=== PATIENT | female | born 1990 | race African-American/Black ===

== ENCOUNTER 2017-01-29 00:07 | Emergency (ER) | payer MEDICAID ==
[~2017-01-29] VITALS: Ht 167.6 cm; Wt 68.0 kg
[~2017-01-29 00:07] MED LIST: PREN1TAB49 PO; ZOLOFT
[2017-01-29 00:09] VITALS: BP 118/72
== END 2017-01-29 03:08 | disposition left against medical advice (07) ==
LOC: ER 00:07
DX: Z53.21 Procedure and treatment not carried out due to patient leaving prior to being seen by health care provider (principal)

== ENCOUNTER 2018-09-05 08:46 | Emergency (ER) | payer MEDICAID ==
[~2018-09-05] VITALS: Ht 160 cm; Wt 73.0 kg
[2018-09-05] MEDS ORDERED: NAPR-677 PO (08:51)
[2018-09-05] MEDS ORDERED: KETOROLAC 30MG/ML VIAL IV STA (09:12)
[2018-09-05] MEDS ORDERED: MORPHINE SULFATE 4 MG/ML CPJ (NOT FOR IM USE) IV STA (09:12)
[2018-09-05] MEDS ORDERED: ONDANSETRON HCL 4MG/2ML INJ IV STA (09:12)
[2018-09-05] MEDS ORDERED: SODIUM CHLORIDE 0.9% 1,000 ML IV ONE (09:12)
[2018-09-05] MEDS ORDERED: FAMOTIDINE 20MG/2ML VIAL IV ONE (09:15)
[2018-09-05 09:36] LABS: BASOPHILS % 0.6 % (0.0-2.0); EOSINOPHILS % 1.6 % (0.0-5.0); HEMATOCRIT. 30.8 % (36.0-48.0); HEMOGLOBIN. 9.9 g/dL (12.0-16.0); LYMPHOCYTES % 30.5 % (20.0-50.0); MEAN CORPUSCULAR HEMOGLOBIN 26.5 pg (28.0-32.0); MEAN CORPUSCULAR VOLUME 82.8 fL (81.0-99.0); MONOCYTES % 7.7 % (2.0-8.0); NEUTROPHILS % 59.6 % (40.0-76.0); PLATELET 218 x1000/uL (130-400); RED BLOOD CELL COUNT 3.73 mill/uL (4.2-5.4); RED CELL DISTRIBUTION WIDTH 16.3 % (11.6-14.6)
[2018-09-05 09:43] LABS: CHLORIDE 113 mEq/L (98-107)
[2018-09-05 09:46] LABS: PARTIAL THROMBOPLASTIN TIME 28.4 sec (23.4-31.0)
[2018-09-05 09:48] LABS: CLARITY URINE TURBID (CLEAR); COLOR URINE YELLOW (YELLOW); KETONES URINE TRACE (NEGATIVE); LEUKOCYTE ESTERASE URINE NEGATIVE (NEGATIVE); NITRITE URINE NEGATIVE (NEGATIVE); OCCULT BLOOD URINE NEGATIVE (NEGATIVE); PH URINE 5.5 (4.5-8.0); PROTEIN URINE NEGATIVE (NEGATIVE); SPECIFIC GRAVITY URINE 1.035 (1.005-1.030); UROBILINOGEN URINE 0.2 E.U./dL (0.2-1.0)
[2018-09-05 09:58] LABS: HCG SCREEN NEGATIVE
[2018-09-05 10:08] VITALS: BP 107/61
[2018-09-05] MEDS ORDERED: KETOROLAC 30MG/ML VIAL IV ONE (11:00)
== END 2018-09-05 12:02 | disposition home or self-care (01) ==
LOC: ER 08:55
DX: N39.0 Urinary tract infection, site not specified (principal); N83.209 Unspecified ovarian cyst, unspecified side; F12.10 Cannabis abuse, uncomplicated; F31.9 Bipolar disorder, unspecified; Z98.890 Other specified postprocedural states; Z98.51 Tubal ligation status
CPT/HCPCS: 36415; 74176; 80053; 81003; 81025; 83690; 83880; 84484; 84703; 85025; 85610; 85730; 96374; 96375; 96376; 99284; J1885; J2270; J2405; J3490; J7030; Z7610

== ENCOUNTER 2018-10-08 18:26 | Emergency (ER) | payer MEDICAID ==
[~2018-10-08] VITALS: Ht 167.6 cm; Wt 70.0 kg
[~2018-10-08 18:26] MED LIST changes: +NAPR-677 PO
[2018-10-08] MEDS ORDERED: MORPHINE SULFATE 4 MG/ML CPJ (NOT FOR IM USE) IV ONE (19:00)
[2018-10-08 20:24] LABS: BASOPHILS % 0.9 % (0.0-2.0); EOSINOPHILS % 2.1 % (0.0-5.0); HEMATOCRIT. 33.7 % (36.0-48.0); HEMOGLOBIN. 10.7 g/dL (12.0-16.0); LYMPHOCYTES % 25.6 % (20.0-50.0); MEAN CORPUSCULAR HEMOGLOBIN 26.2 pg (28.0-32.0); MEAN CORPUSCULAR VOLUME 82.5 fL (81.0-99.0); MEAN PLATELET VOLUME 8.5 fl (7.4-10.4); MONOCYTES % 6.1 % (2.0-8.0); NEUTROPHILS % 65.3 % (40.0-76.0); PLATELET 219 x1000/uL (130-400); RED BLOOD CELL COUNT 4.08 mill/uL (4.2-5.4); RED CELL DISTRIBUTION WIDTH 16.4 % (11.6-14.6)
[2018-10-08 20:39] LABS: CHLORIDE 110 mEq/L (98-107)
[2018-10-08 20:50] LABS: B-HCG QUANTITATIVE < 1 mIU/mL (<3)
[2018-10-08 22:26] VITALS: BP 104/61
== END 2018-10-08 22:42 | disposition home or self-care (01) ==
LOC: ER 18:26
DX: R10.2 Pelvic and perineal pain (principal); R10.84 Generalized abdominal pain; M54.5 Low back pain; F31.9 Bipolar disorder, unspecified; F12.10 Cannabis abuse, uncomplicated; Z98.51 Tubal ligation status; Z98.890 Other specified postprocedural states
CPT/HCPCS: 36415; 76830; 76856; 80053; 81025; 84702; 85025; 86850; 86900; 86901; 93005; 96374; 99284; J2270

== ENCOUNTER 2019-02-28 17:41 | Emergency (ER) | payer MEDICAID ==
[~2019-02-28] VITALS: Ht 165.1 cm; Wt 70.0 kg
[2019-02-28] MEDS ORDERED: KETOROLAC 60MG/2ML VIAL IM ONE (19:45)
[2019-02-28] MEDS ORDERED: ONDANSETRON 4MG ODT PO ONE (19:45)
[2019-02-28 20:21] LABS: CLARITY URINE TURBID (CLEAR); COLOR URINE DARK YELLOW (YELLOW); KETONES URINE 1+ (NEGATIVE); LEUKOCYTE ESTERASE URINE NEGATIVE (NEGATIVE); NITRITE URINE NEGATIVE (NEGATIVE); OCCULT BLOOD URINE NEGATIVE (NEGATIVE); PROTEIN URINE 1+ (NEGATIVE); SPECIFIC GRAVITY URINE 1.043 (1.005-1.030); UROBILINOGEN URINE 0.2 E.U./dL (0.2-1.0)
[2019-02-28 21:20] VITALS: BP 108/69
== END 2019-02-28 21:21 | disposition home or self-care (01) ==
LOC: ER 17:45
DX: B34.9 Viral infection, unspecified (principal); F17.210 Nicotine dependence, cigarettes, uncomplicated
CPT/HCPCS: 81003; 81025; 87070; 87430; 87804; 96372; 99283; J1885; Q0162